=== PATIENT | female | born 1970 | race Caucasian/White ===

== ENCOUNTER → 2023-01-06 | Outpatient (REF) | payer OTHER ==
[~2023-01-06] MED LIST: LIDOCAINE HCL 1% LOCAL INJ 20 ML VIAL ONE
== END ==
LOC: US 09:25
PROVIDERS: ATTEND Internal Medicine
DX: E04.2 Nontoxic multinodular goiter (principal)
CPT/HCPCS: 10005; 88172; 88173; 88305; J2001

== ENCOUNTER → 2024-04-11 | Outpatient (REF) | payer BC | LOC: US 11:28 | PROVIDERS: ATTEND Internal Medicine | DX: E04.2 Nontoxic multinodular goiter (principal) | CPT/HCPCS: 76536 ==